=== PATIENT | female | born 1975 | race Caucasian/White ===

== ENCOUNTER 2023-03-21 18:59 | Emergency (ER) | payer OTHER, SELFPAY ==
--- NOTE | ~2023-03-21 | CT_ITS ---
EXAMINATION: CT abdomen pelvis w con DATE: 03/21/2023 20:14 INDICATION: Left flank and abdominal pain. TECHNIQUE: Computed tomography (CT) of the abdomen and pelvis was performed with 100 mL Omnipaque-350 intravenous contrast. Automated exposure control and iterative reconstruction technique were employe d. The dose-length product was 827.12 mGy-cm. COMPARISON: None FINDINGS: Lung bases are clear. Heart size is normal. No pericardial or pleural effusion. Small sliding-type hi atal hernia. Liver, gallbladder, spleen, pancreas, bilateral adrenal glands and right kidney are norm al. 2 mm obstructing stone in the distal left ureter with mild left hydronephrosis and delayed left n ephrogram. There are couple additional 2 mm stones in the left kidney, one at the upper pole calyx of the second in the lower pole calyx. 1 cm cyst at the lower pole of the left kidney. There are few sc attered colonic diverticula without adjacent inflammatory stranding to suggest diverticulitis. Small bowel and appendix are normal. Small fat-containing umbilical hernia. Decompressed bladder is unremar kable. Multiple uterine fibroids including a 2.4 cm pedunculated fibroid at the posterior fundus. No free intraperitoneal gas or fluid. No pathologically enlarged abdominal or pelvic lymphadenopathy. Mi ld thoracolumbar dextrocurvature with mild spondylosis. IMPRESSION: 1. Left nephrolithiasis with obstructing 2 mm stone at the distalmost left ureter resulting in mild l eft hydronephrosis and delayed left nephrogram. 2. Fibroid uterus. 2. Small sliding-type hiatal hernia. 4. Small fat-containing umbilical hernia. Reviewed, dictated and finalized at location A. IMPRESSION: 1. Left nephrolithiasis with obstructing 2 mm stone at the distalmost left uret er resulting in mild left hydronephrosis and delayed left nephrogram. 2. Fibroid uterus. 2. Small sliding-type hiatal hernia. 4. Small fat-containing umbilical hernia.
[2023-03-21 19:01] VITALS: BP 180/94; PULSE 100; RESP 18; TEMP 36.5; O2SAT 100
--- NOTE | 2023-03-21 19:07 | PC.NURSE ---
pt comes back to room 13, pt very anxious. pt c/o her tongue feeling weird and feeling like her throat is swelling up. pt airway patent, breathing tachypneic, oxygen saturation 100% on room air. pt swelling noted to throat or tongue.
--- NOTE | 2023-03-21 19:29 | ED.GENADULT ---
HPI - General Adult General Chief complaint: Back Pain/Injury Stated complaint: PAIN IN LEFT LOWER BACK Time Seen by Provider: 03/21/23 19:18 Source: patient Mode of arrival: ambulatory Limitations: no limitations History of Present Illness HPI narrative: 47 years old white female came to the emergency room because of sudden onset of left flank pain radiating to left abdomen, subsequently started having numbness tingling of the hands bilaterally, associated with sore throat and possible large tongue, patient feels like her throat is closing up. She denies any fever, chills, or. Vomiting. Currently her main complaint is her throat is closing up, her tongue is large, slight left abdominal pain. She denied history of food allergy. History of allergy to Compazine and sulfa drug. Patient denies using any new drugs recently, currently on vitamins. Related Data Allergies Allergy/AdvReac Type Severity Reaction Status Date / Time prochlorperazine Allergy Unknown Skin Verified 11/08/20 10:33 Crawling Sulfa (Sulfonamide Allergy Unknown Hives Verified 11/08/20 10:33 Antibiotics) Review of Systems Review of Systems: All systems reviewed & are unremarkable except as noted in HPI and below PMFSH Past Medical History Medical History Hyperlipidemia Hypertension Numerous moles Family History Family History Mother Diabetes mellitus Hypertension Patient's mother is in good health Family history of elevated blood lipids Father Family history of elevated blood lipids Family history of cardiovascular disease History of open heart surgery Social History Social History Smoking status: Never smoker Alcohol intake: current Exam Narrative: General appearance: Well-developed, well-nourished, anxious Skin: Normal color Head: Normocephalic, nontraumatic Eyes: Clear conjunctiva ENT: Oropharynx normal, ears normal, nose normal Neck: Supple, nontender Chest and respiratory: Airway patent, no respiratory distress, no accessory muscle use Heart: Regular rate/rhythm Abdomen: Soft, mild tenderness left lower back, no bruises, no swelling or rash., no organomegaly, quiet bowel sounds Vascular: Normal peripheral pulses, normal capillary refill. Musculoskeletal: Normal range of motion, nontender back Neurologic: Alert and oriented ?3, [employer] is normal as tested, no gross motor deficit Course Reevaluation(s) Reevaluation #1: Significant improvement after receiving IV fluid, oral Flomax, IV Toradol. Date: 03/21/23 Time: 21:15 Vital Signs Vital signs: Vital Signs Temperature 36.5 C 03/21/23 19:01 Pulse Rate 100 03/21/23 19:01 Respiratory Rate 18 03/21/23 19:01 Blood Pressure 180/94 H 03/21/23 19:01 Pulse Oximetry 100 03/21/23 19:01 Oxygen Delivery Room Air 03/21/23 19:01 Temperature 36.5 C 03/21/23 19:01 Pulse Rate 103 H 03/21/23 20:28 Respiratory Rate 26 H 03/21/23 20:28 Blood Pressure 169/108 H 03/21/23 20:28 Pulse Oximetry 98 03/21/23 20:28 Oxygen Delivery Room Air 03/21/23 19:01 Medical Decision Making MDM Narrative Medical decision making narrative: 47 years old white female had sudden onset of left flank pain lower back pain subsequently developed tightness in the throat and large tongue within few minutes of eating. Physical examination showed slight tenderness at the left flank area and left lower abdomen, differential diagnosis include food allergy, urinary tract infection, kidney stone, diverticulitis, anxiety related symptoms
[2023-03-21] MEDS: SODIUM CHLORIDE 0.9% IV 1,000 ML 999 ML IV CONT (19:35)
[2023-03-21] MEDS: methylPREDNISolone SOD SUCC 125 MG VIAL IV PUSH (19:35)
[2023-03-21] MEDS: ONDANSETRON INJ 4 MG/2 ML VIAL IV PUSH (19:35)
[2023-03-21] MEDS: diphenhydrAMINE HCl INJ 50 MG/ML VIAL IV PUSH (19:35)
[2023-03-21] MEDS: EPINEPHrine HCL INJ 1 MG/ML AMPUL 0.3 MG IM (19:35)
[2023-03-21 19:41] LABS: Basophils Percent Auto 0.6 % (0.2-1.2); Eosinophils Absolute Auto 0.3 K/mm3 (0-0.3); Eosinophils Percent Auto 4.4 % (0-4.4); Hematocrit 42.1 % (37.0-47.0); Hemoglobin 14.3 g/dL (12.0-15.0); Immature Granulocyte Absolute 0.01 K/mm3 (0.00-0.031); Immature Granulocyte Percent A 0.2 % (0-0.5); Lymphocytes Absolute Auto 2.58 K/mm3 (0.9-3.2); Lymphocytes Percent Auto 41.7 % (18.3-44.2); Mean Corpuscular Hemoglobin 28.4 pg (26-34); Mean Corpuscular Volume 83.7 fl (80-100); Mean Platelet Volume 9.8 fl (7.4-10.4); Monocytes Absolute Auto 0.8 K/mm3 (0.1-0.6); Monocytes Percent Auto 13.1 % (2.6-8.5); Neutrophils Absolute Auto 2.5 K/mm3 (1.3-6.7); Platelet Count Result 306 k/mm3 (150-375); Red Blood Count 5.03 M/mm3 (4.2-5.4); Red Cell Distribution Width 14.1 % (11.5-14.5); White Blood Count 6.2 K/mm3 (4.5-10.0)
[2023-03-21 19:53] LABS: Alanine Aminotransferase 27 U/L (6-35); Albumin Level 4.6 g/dL (3.5-5.1); Alkaline Phosphatase 73 U/L (38-126); Anion Gap 10 mmol/L (8-16); Aspartate Amino Transferase 27 U/L (14-36); Bilirubin,Total 0.3 mg/dL (0.2-1.3); Blood Urea Nitrogen 12 mg/dL (7-17); Carbon Dioxide 26 mmol/L (22-30); Chloride 105 mmol/L (98-107); Estimated CRCL calculation 70 ml/min; Estimated Glomerular Filt Rate > 60; Glucose 117 mg/dL (65-110); Lipase 147 U/L (23-300); Potassium 2.8 mmol/L (3.4-5.0); Sodium 141 mmol/L (137-145)
[2023-03-21 20:28] VITALS: BP 169/108; PULSE 103; RESP 26; O2SAT 98
[2023-03-21] MEDS: KETOROLAC 30 MG/ML VIAL (*BKC) IV PUSH (20:36)
[2023-03-21] MEDS: TAMSULOSIN HCL 0.4 MG CAPSULE PO (20:36)
[2023-03-21 21:07] LABS: Appearance Urine Clear (Clear); Bilirubin Urine Negative (Negative); Blood Urine 2+ (Negative); Color Urine Red (Yellow); Glucose Urine UA Negative (Negative); Ketones Urine Trace mg/dL (Negative); Leukocyte Esterase Ur Negative LEU/UL (Negative); Nitrate Urine Negative (Negative); Protein Urine 2+ mg/dL (Negative); Urobilinogen Urine 0.2 mg/dL (<2.0); pH Urine 7.5 (5.0-9.0)
[2023-03-21 21:11] LABS: Add Urine Microscopic? YES; RBC Urine >100 /hpf (0-2)
[2023-03-21] MEDS: POTASSIUM CHLORIDE 20 MEQ ER TABLET 40 MEQ PO (21:29)
== END 2023-03-21 21:55 | disposition home or self-care (01) ==
PROVIDERS: Emergency Provider Emergency Medicine; PCP Internal Medicine
DX: M54.50 Low back pain, unspecified (principal); N20.0 Calculus of kidney; T78.1XXA Other adverse food reactions, not elsewhere classified, initial encounter; I10 Essential (primary) hypertension; E78.5 Hyperlipidemia, unspecified
CPT/HCPCS: 36415; 74177; 80053; 81001; 83690; 85025; 87086; 87088; 96361; 96372; 96374; 96375; 99284; A9270; J0171; J1200; J1885; J2405; J2930; J7030; Q9967

== ENCOUNTER 2023-09-03 00:20 | Day surgery (SDC) | payer OTHER, SELFPAY ==
[2023-08-06 09:43] VITALS: BMI 33.5
[2023-08-20 11:02] VITALS: BMI 32.7
--- NOTE | 2023-09-01 11:55 | SUR.PREOP ---
Patient called regarding upcoming procedure. Reviewed preop instructions, appointment times, and procedure prep.
[2023-09-03 09:04] VITALS: BP 149/99; PULSE 85; RESP 16; TEMP 36.6; O2SAT 100; BMI 33.0
[2023-09-03] MEDS: LACTATED RINGERS 1,000 ML 150 ML IV CONT (09:20)
--- NOTE | 2023-09-03 09:30 | WPDANESEPPF ---
Anes - Initial Pre Proc Eval Procedure: Operation Date: 09/03/23 09:30 Proposed Procedures p Screening Colonoscopy - Aaron Meredith MD Date/Time: 09/03/23 09:30 Surgeon: Aaron Meredith MD Pre Op Diagnosis: neoplasm screening Patient Data Age: 48 Gender: F Height: 1.52 m Weight: 76.6 kg Last Vital Signs Temp 36.6 C 09/03/23 09:04 Pulse 85 09/03/23 09:04 Resp 16 09/03/23 09:04 BP 149/99 H 09/03/23 09:04 Pulse Ox 100 09/03/23 09:04 O2 Del Method Room Air 09/03/23 09:04 Allergies Allergy/AdvReac Type Severity Reaction Status Date / Time prochlorperazine Allergy Unknown Skin Verified 09/03/23 09:02 Crawling Sulfa (Sulfonamide Allergy Unknown Hives Verified 09/03/23 09:02 Antibiotics) Wasp Allergy Anaphylaxis Uncoded 09/03/23 09:02 Home Medications Medication Instructions Recorded Confirmed Type epinephrine 0.3 mg/0.3 mL 0.3 mg (0.3 mL) IM ONCE Wasp 03/26/21 09/03/23 Rx injection, auto-injector (EpiPen sting. #2 ea 2-Senthil) cholecalciferol (vitamin D3) 1,250 1,250 mcg PO WEEKLY #8 tabs 05/12/23 09/03/23 Rx mcg (50,000 unit) tablet levothyroxine 25 mcg tablet 25 mcg PO DAILY #90 tabs 06/15/23 09/03/23 Rx lisinopril 20 mg tablet 20 mg PO DAILY #90 tabs 08/30/23 09/03/23 Rx Patient hx anesthesia problems: none Family hx anesthesia problems: none Results Review: All pre-operative results and documents have been reviewed as part of the pre-operative evaluation. [facility] Past Medical History Medical History Fatigue Hyperlipidemia Itching Numerous moles Screening for metabolic disorder Vitamin D deficiency Vitamin deficiency Wasp sting (Unknown) Family History Family History Mother Diabetes mellitus Hypertension Patient's mother is in good health Family history of elevated blood lipids Father Family history of elevated blood lipids Family history of cardiovascular disease History of open heart surgery Social History Social History Smoking status: Never smoker Alcohol intake: never Substance use: never Substance use type: does not use Lack of Transportation: No Lack of Food: Never True Current Housing: I Have Housing Concerned About Future Housing: No Difficulty Paying Gas/Electric Bills: No Difficulty Paying for Meds: No Currently Unemployed: No Education: Bachelor's Degree Difficulty w/ Childcare or Family Care: No Living arrangements: with family Spiritual care concerns: No Anes - Eval Final PreProcedure Day of Procedure 09/03/23 09:30 Patient weight: obese Heart: regular rate and rhythm Lungs: clear to auscultation Airway: Mallampati scale class II Neurological: alert and oriented Last oral intake: >/= 8 hours ASA classification: II Emergent: no Anesthetic plan: proceed Anesthesia type and monitoring: general GIVS and standard monitoring Results Review: All pre-operative results and documents have been reviewed as part of the pre-operative evaluation. Informed Consent: The patient's anesthetic plan and its attendant risks and benefits were discussed with the patient/family/POA. Questions were solicited and answers provided to the satisfaction of the patient/family/POA.
[2023-09-03 09:36] VITALS: BP 149/99; PULSE 85; RESP 16; TEMP 36.6; O2SAT 100; BMI 33.1
--- NOTE | 2023-09-03 09:42 | PM.HPGS ---
History of Present Illness History of Present Illness Consent: Risks, benefits, and alternatives have been discussed and questions answered. Patient agrees to proceed with procedure. Chief complaint: neoplasm screening Narrative: Tess Barahona is a 48 year old female Presents for screening colonoscopy. Patient's current weight appetite and bowel movements are normal. Patient denies abdominal pain. She has had no bleeding. Family history noncontributory. Review of Systems Review of Systems: Review of systems noncontributory. [facility] Past Medical History Medical History Fatigue Hyperlipidemia Itching Numerous moles Screening for metabolic disorder Vitamin D deficiency Vitamin deficiency Wasp sting (Unknown) Family History Family History (Reviewed 07/08/23 @ 11:40 by Joyce Greenberg [facility]) Mother Diabetes mellitus Hypertension Patient's mother is in good health Family history of elevated blood lipids Father Family history of elevated blood lipids Family history of cardiovascular disease History of open heart surgery Social History Social History Smoking status: Never smoker Alcohol intake: never Substance use: never Substance use type: does not use Lack of Transportation: No Lack of Food: Never True Current Housing: I Have Housing Concerned About Future Housing: No Difficulty Paying Gas/Electric Bills: No Difficulty Paying for Meds: No Currently Unemployed: No Education: Bachelor's Degree Difficulty w/ Childcare or Family Care: No Living arrangements: with family Spiritual care concerns: No Meds Home Medications and Allergies Home Medications Medication Instructions Recorded Confirmed Type epinephrine 0.3 mg/0.3 mL 0.3 mg (0.3 mL) IM ONCE Wasp 03/26/21 09/03/23 Rx injection, auto-injector (EpiPen sting. #2 ea 2-Senthil) cholecalciferol (vitamin D3) 1,250 1,250 mcg PO WEEKLY #8 tabs 05/12/23 09/03/23 Rx mcg (50,000 unit) tablet levothyroxine 25 mcg tablet 25 mcg PO DAILY #90 tabs 06/15/23 09/03/23 Rx lisinopril 20 mg tablet 20 mg PO DAILY #90 tabs 08/30/23 09/03/23 Rx Allergies Allergy/AdvReac Type Severity Reaction Status Date / Time prochlorperazine Allergy Unknown Skin Verified 09/03/23 09:02 Crawling Sulfa (Sulfonamide Allergy Unknown Hives Verified 09/03/23 09:02 Antibiotics) Wasp Allergy Anaphylaxis Uncoded 09/03/23 09:02 Vital Signs Vital Signs - 24 hr 09/03/23 09:04 09/03/23 09:36 Temperature 98 F 98 F Pulse Rate 85 85 Respiratory Rate 16 16 Blood Pressure 149/99 H 149/99 H Pulse Oximetry 100 100 Oxygen Delivery Room Air Room Air Exam Narrative: Physical exam reveals patient to be alert. Vital signs stable. HEENT exam is unremarkable. Patient is anicteric. Lungs are clear to auscultation and percussion. Heart is without murmur or extra sounds. Abdomen bowel sounds are present soft nontender with no organomegaly. Digital external rectal exam normal. Assessment and Plan Assessment and plan (1) Screening for colon cancer: Code(s): Z12.11 - Encounter for screening for malignant neoplasm of colon Status: Acute Assessment and Plan: Patient presents for screening colonoscopy. She appears be at average risk for colon polyps. Further recommendations may be given after endoscopy.
[2023-09-03 10:13] VITALS: BP 118/62; PULSE 77; RESP 22; O2SAT 100
[2023-09-03 10:23] VITALS: BP 114/71; PULSE 86; RESP 23; O2SAT 100
[2023-09-03 10:33] VITALS: BP 137/67; PULSE 87; RESP 20; O2SAT 100
== END 2023-09-03 10:40 | disposition home or self-care (01) ==
PROVIDERS: PCP Nurse Practitioner; Visit Provider Internal Medicine Gastroenterology
PROC: 0DJD8ZZ Inspection of Lower Intestinal Tract, Via Natural or Artificial Opening Endoscopic (ICD-10-PCS; CPT 45378; principal; 2023-09-03 09:30)
DX: Z12.11 Encounter for screening for malignant neoplasm of colon (principal); E55.9 Vitamin D deficiency, unspecified; E66.9 Obesity, unspecified; Z68.33 Body mass index [BMI] 33.0-33.9, adult
CPT/HCPCS: 45378; J2001; J2704; J7120

== ENCOUNTER 2024-11-10 09:14 | Outpatient (CLI) | payer OTHER, SELFPAY ==
--- NOTE | ~2024-11-10 | US_ITS ---
EXAMINATION: US retroperitoneal duplex ltd DATE: 11/10/2024 09:32 INDICATION: Hypertension. TECHNIQUE: Multiple grayscale, color Doppler, and pulsed Doppler images of the kidneys and renal lenny beto were obtained. COMPARISON: CT abdomen and pelvis 03/21/2023 FINDINGS: The aorta peak systolic velocity is 119 cm/s. The right renal artery peak systolic velocity is 148 cm /s in the proximal segment, 104 cm/s in the mid segment, and 52 cm/s in the distal segment. The left renal artery peak systolic velocity is 105 cm/s in the proximal segment, 100 cm/s in the mid segment, and 43 cm/s in the distal segment. IMPRESSION: 1. No Doppler evidence of renal artery stenosis. The prior CT similarly shows no significant renal a rtery stenosis. Reviewed, dictated and finalized at location A. [employer] IMPRESSION: 1. No Doppler evidence of renal artery stenosis. The prior CT similarly shows no significant renal artery stenosis.
== END 2024-11-10 09:15 | disposition home or self-care (01) ==
PROVIDERS: PCP Clinical Nurse Specialist; Visit Provider Clinical Nurse Specialist
DX: I10 Essential (primary) hypertension (principal)
CPT/HCPCS: 93976